=== PATIENT | female | born 1985 | race Caucasian/White ===

== ENCOUNTER → 2020-09-04 10:03 | Outpatient (BNVA) | payer OTHER, SELFPAY | PROVIDERS: Visit Provider Advanced Practice Midwife | DX: R10.2 Pelvic and perineal pain (principal); R87.619 Unspecified abnormal cytological findings in specimens from cervix uteri; N89.8 Other specified noninflammatory disorders of vagina; Z98.890 Other specified postprocedural states | CPT/HCPCS: 99213 ==

== ENCOUNTER 2020-09-04 14:29 | Outpatient (REF) | payer OTHER, SELFPAY ==
[2020-09-04 16:23] LABS: CT PCR NOT DETECTED (Not Detect.); NG PCR NOT DETECTED (Not Detect.)
[2020-09-05 11:27] LABS: BV Int Neg Control Negative (Negative); BV Int Pos Control Positive (Positive)
[2020-09-13 18:17] LABS: HPV mRNA E6/E7 rflx Not Detected (Not Detected)
== END 2020-09-04 14:30 | disposition home or self-care (01) ==
LOC: HO.LNP 14:29
PROVIDERS: Visit Provider Advanced Practice Midwife
DX: Z11.3 Encounter for screening for infections with a predominantly sexual mode of transmission (principal); N89.8 Other specified noninflammatory disorders of vagina
CPT/HCPCS: 87480; 87491; 87510; 87591; 87624; 87625; 87660; 88142

== ENCOUNTER 2020-09-05 11:57 | Outpatient (REF) | payer OTHER, SELFPAY | END 2020-09-05 11:58 | disposition home or self-care (01) | LOC: HO.LAB 11:57 | PROVIDERS: Visit Provider Advanced Practice Midwife | DX: Z13.89 Encounter for screening for other disorder (principal) ==

== ENCOUNTER 2020-10-20 09:38 | Outpatient (REF) | payer OTHER, SELFPAY ==
--- NOTE | 2020-10-20 09:42 | US_ITS ---
EXAMINATION: US PELVIC COMPLETE US TRANSVAGINAL CLINICAL INFORMATION: Pelvic pain. COMPARISON: None TECHNIQUE: Transabdominal and transvaginal ultrasound of the pelvis is performed. FINDINGS: The uterus is retroflexed measuring 8.7 cm in length, 5.6 cm in AP and 6.1 cm in transverse dimension. The uterus is homogeneous in echotexture without focal lesion. Endometrial thickness is 1.3 cm. Right ovary measures 3.0 x 1.6 x 1.5 cm and volume 3.6 mL. Previously, the right ovary measured 2.8 x 1.4 x 1.6 cm. Left ovary measures 2.5 x 1.7 x 2.5 cm and volume 5.5 mL. There is an anechoic dominant follicle cyst measuring 1.7 x 1.3 x 1.7 cm. Several additional cysts are seen. There is no free fluid in cul-de-sac. US/US pelvic complete IMPRESSION: Dominant follicular cysts seen in the left ovary. Otherwise, both ovaries are unremarkable. The uterus is unremarkable.
--- NOTE | 2020-10-20 09:42 | US_ITS ---
EXAMINATION: US PELVIC COMPLETE US TRANSVAGINAL CLINICAL INFORMATION: Pelvic pain. COMPARISON: None TECHNIQUE: Transabdominal and transvaginal ultrasound of the pelvis is performed. FINDINGS: The uterus is retroflexed measuring 8.7 cm in length, 5.6 cm in AP and 6.1 cm in transverse dimension. The uterus is homogeneous in echotexture without focal lesion. Endometrial thickness is 1.3 cm. Right ovary measures 3.0 x 1.6 x 1.5 cm and volume 3.6 mL. Previously, the right ovary measured 2.8 x 1.4 x 1.6 cm. Left ovary measures 2.5 x 1.7 x 2.5 cm and volume 5.5 mL. There is an anechoic dominant follicle cyst measuring 1.7 x 1.3 x 1.7 cm. Several additional cysts are seen. There is no free fluid in cul-de-sac. US/US transvaginal IMPRESSION: Dominant follicular cysts seen in the left ovary. Otherwise, both ovaries are unremarkable. The uterus is unremarkable.
== END 2020-10-20 09:39 | disposition home or self-care (01) ==
LOC: HO.HMGCX 09:38
PROVIDERS: Visit Provider Advanced Practice Midwife
DX: R10.2 Pelvic and perineal pain (principal); B96.89 Other specified bacterial agents as the cause of diseases classified elsewhere; Z80.0 Family history of malignant neoplasm of digestive organs; Z87.42 Personal history of other diseases of the female genital tract
CPT/HCPCS: 76830; 76856; 99212

== ENCOUNTER 2021-08-17 13:16 | Outpatient (REF) | payer OTHER, SELFPAY ==
[2021-08-18 10:34] LABS: CT PCR NOT DETECTED (Not Detect.); NG PCR NOT DETECTED (Not Detect.)
[2021-08-19 14:35] LABS: BV Int Neg Control Negative (Negative); BV Int Pos Control Positive (Positive)
== END 2021-08-17 13:17 | disposition home or self-care (01) ==
LOC: HO.LAB 13:16
PROVIDERS: Visit Provider Advanced Practice Midwife
DX: Z11.3 Encounter for screening for infections with a predominantly sexual mode of transmission (principal); N76.0 Acute vaginitis; B96.89 Other specified bacterial agents as the cause of diseases classified elsewhere; Z87.42 Personal history of other diseases of the female genital tract; Z20.2 Contact with and (suspected) exposure to infections with a predominantly sexual mode of transmission
CPT/HCPCS: 87480; 87491; 87510; 87591; 87660; 99212

== ENCOUNTER 2021-10-23 08:17 | Outpatient (REF) | payer SELFPAY ==
[2021-10-23 13:29] LABS: CT PCR NOT DETECTED (Not Detect.); NG PCR NOT DETECTED (Not Detect.)
[2021-10-24 11:16] LABS: BV Int Neg Control Negative (Negative); BV Int Pos Control Positive (Positive)
[2021-10-26 20:07] LABS: HPV mRNA E6/E7 rflx Not Detected (Not Detected)
== END 2021-10-23 08:18 | disposition home or self-care (01) ==
LOC: HO.LAB 08:17
PROVIDERS: Visit Provider Advanced Practice Midwife
DX: Z12.4 Encounter for screening for malignant neoplasm of cervix (principal); Z11.51 Encounter for screening for human papillomavirus (HPV); Z20.2 Contact with and (suspected) exposure to infections with a predominantly sexual mode of transmission; N76.0 Acute vaginitis; B96.89 Other specified bacterial agents as the cause of diseases classified elsewhere; Z87.42 Personal history of other diseases of the female genital tract
CPT/HCPCS: 87480; 87491; 87510; 87591; 87624; 87660; 88142

== ENCOUNTER 2023-08-27 13:43 | Outpatient (AMB) | payer BC, SELFPAY ==
--- NOTE | 2023-08-27 13:44 | MHC.OFFVIS ---
Intake Vital Signs 08/27/23 13:47 Height 4 ft 11 in Weight 122 lb BMI 24.6 BP 118/80 Blood Pressure Location Rt brachial Position Sitting Intake Visit Reasons: Pelvic pain Allergies divalproex sodium [DIVALPROEX SODIUM] Allergy (Unknown, Verified 08/27/23 13:49) UNKNOWN prednisone [PREDNISONE] Allergy (Unknown, Verified 08/27/23 13:49) UNKNOWN propranolol [PROPRANOLOL] Allergy (Unknown, Verified 08/27/23 13:49) UNKNOWN rizatriptan [RIZATRIPTAN] Allergy (Unknown, Verified 08/27/23 13:49) UNKNOWN Medication List - Last Reconciled 08/27/23 by Leda Nelson CNM amlodipine 5 mg PO DAILY ascorbate calcium (vitamin C) 500 mg PO QDAY ferrous fumarate (Ferretts) 325 mg PO BID Is last menstrual period known: Yes Last menstrual period: 08/13/23 HPI Pelvic pain HPI Details Patient is here to discuss her left-sided pelvic pain which she has had for years but has periodically been very very bad for her. 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 She has her next appointment with her primary care in October it is hard to get appointments. She had a history of something being taken out of her uterus some years ago (history of endometrial curettage with removal of endometrial polyp 2017) she also had abnormal Pap smears CINTIA 2-3 in 2017 and had a LEEP on 07/16/[address] Haywood both surgeries worry with Dr. Haywood. Patient continues with occasional left-sided pain in some ways it is always there but it gets worse at times and on July 30 it was so bad she had to leave work her last period was on August 13 she gets regular periods she has had her tubes tied so she does need to worry about control and she was last sexually active 6 months ago she has a history of having occasional recurrences of bacterial vaginosis but lately it has been pretty good and she has not needed to self treat though she attempted a treatment with boric acid capsules just in case that was the cause of her symptoms recently it did not do anything. Because she was characterizing the pain when she called as left-sided burning there was a question apparently of a UTI so she self-treated with azo/kqai-lsl-plukimk treatment and it did nothing whatsoever. We will submit a urinary culture today but her symptoms do not align with a UTI at all. HPI Comments History of Present Illness Details Pt c/o left sided pain seems to get more intense with cycles ( burning sensation ) since last month radiates down leg x few years PFSH Medical History Abnormal Pap smear of cervix Anemia Anemia Endometrial polyp FHx: migraine headaches GERD (gastroesophageal reflux disease) Pelvic pain Surgical History Hx of pelvic surgery H/O LEEP H/O tubal ligation Family History Maternal Aunt Colon cancer Social History Alcohol intake: never Female Reproductive History Menstrual Age of Menarche: 10 Date of last menstrual period: 08/13/23 Total pregnancies: 2 Number of Living Children: 2 Physical Exam Vital Signs: Last Vital Signs BP 118/80 08/27/23 13:47 BMI result Body Mass Index 24.6 Const General: healthy appearing, comfortable, no acute distress, well developed and alert Nutritional Appearance: average body habitus Orientation/consciousness: patient oriented x3 Limitations: no limitations HEENT Head: Yes normocephalic Neck Neck: Yes normal visual inspection Chest Chest palpation & inspection: normal inspection of the chest Breast/axilla inspection: normal inspection of the breasts and normal inspection of the axillae Breast/axilla palpation: normal palpation of the breasts and normal palpation of the axillae Resp Effort & Inspection: normal respiratory effort GI Inspection: Yes normal to inspection, No Abdominal wall edema and No distended Palpation (GI): Soft to palpation and nontender Other: Speculum exam completely within normal limits today no abnormal discharge noted discharge is clear with slight yellow tinge. Cervix is pink and smooth markedly anterior. Uterus is small nontender retroverted. Adnexa are bilaterally small nontender not enlarged to palpation by my exam. Good tone with Kegel. General: Yes bladder normal to palpation External Female Exam: normal external appearance and normal appearance of the urethra Speculum Exam - Vagina: normal appearance of the vagina, normal palpation and normal vaginal discharge Speculum Exam - Cervix: normal appearance of the cervix, normal palpation and nontender Bimanual exam- vagina & uterus: normal bimanual exam, normal palpation, uterine size normal, bladder normal to palpation, consistency normal, normal palpation, uterine mobility normal, uterine shape normal, No Cervical tenderness present, non-tender and no cervical motion tenderness Bimanual Exam- Adnexa, other: normal adnexae, no masses, normal and No adnexal tenderness Neuro General: patient oriented x3 Results Reviewed Results Reviewed: Patient: Kiah Keller MR#: [id number] : 1985 Acct:[id number] Age/Sex: 35 / F ADM Date: 10/20/20 Loc: HO.[facility]GCX Attending Dr: Leda Nelson CNM Ordering Physician: Leda Nelson CNM Date of Service: 10/20/20 Procedure(s): US transvaginal Accession Number(s): [id number] cc: Leda Nelson CNM~ EXAMINATION: US PELVIC COMPLETE US TRANSVAGINAL CLINICAL INFORMATION: Pelvic pain. COMPARISON: None TECHNIQUE: Transabdominal and transvaginal ultrasound of the pelvis is performed. FINDINGS: The uterus is retroflexed measuring 8.7 cm in length, 5.6 cm in AP and 6.1 cm in transverse dimension. The uterus is homogeneous in echotexture without focal lesion. Endometrial thickness is 1.3 cm. Right ovary measures 3.0 x 1.6 x 1.5 cm and volume 3.6 mL. Previously, the right ovary measured 2.8 x 1.4 x 1.6 cm. Left ovary measures 2.5 x 1.7 x 2.5 cm and volume 5.5 mL. There is an anechoic dominant follicle cyst measuring 1.7 x 1.3 x 1.7 cm. Several additional cysts are seen. There is no free fluid in cul-de-sac. US/US transvaginal IMPRESSION: Dominant follicular cysts seen in the left ovary. Otherwise, both ovaries are unremarkable. The uterus is unremarkable. 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 Negative for intraepithelial lesion or malignancy. HPV mRNA E6/E7: NOT DETECTED This assay detects E6/E7 viral messenger RNA (mRNA) from 14 high-risk HPV types (16, 18, 31, 33, 35, 39, 45, 51, 52, 56, 58, 59, 66, 68) HPV testing performed by [facility], [place], [place]. See reference laboratory portion of the EMR for entire report. Clinical Information LMP: 10/03/21 Previous PAP test: 2020, WNL Other history:2018 abnormal pap Material Received ThinPrep-Cervical Electronically Signed By: Elias Lawson MD 11/08/21 0909 The Pap Test is a screening procedure with the inherent possibility of both false negative and false positive results. Results should be interpreted in the context of historic and current clinical findings. Reliability of the Pap Test is enhanced by performing the test on a regular repetitive basis. Patient: Kiah Keller Age/Sex: 36/F MR#: [id number] Page 1 of 1 Name: Kiah Keller Specimen #: [id number] Age/Sex: 35/F Attending: Leda Nelson CNM : 1985 Submitted by: Leda Nelson CNM Collected: 09/04/20 MR #: [id number] Received: 09/06/20 Status: DEP REF Location: [facility] Interpretation Satisfactory for evaluation. Coccobacilli consistent with shift in vaginal florentin. Negative for intraepithelial lesion or malignancy. HPV mRNA E6/E7: Not Detected This assay detects E6/E7 viral messenger RNA (mRNA) from 14 high-risk HPV types (16, 18, 31, 33, 35, 39, 45, 51, 52, 56, 58, 59, 66, 68) HPV testing performed by [facility], [place], [place]. See reference laboratory portion of the EMR for entire report. Clinical Information LMP: 08/09/20 Previous PAP test: 08/31/19, abnormal Other history: Hx of CINTIA 2, LEEP, CINTIA 2 2018 Material Received ThinPrep cervical Electronically Signed By: OKSANA Roy (ASCP) 09/20/20 1221 Patient: Kiah Keller Age/Sex: 35/F MR#: [id number] Page 1 of 1 Assessment & Plan Assessment & Plan (1) Well woman exam with routine gynecological exam: Code(s): Z01.419 - Encounter for gynecological examination (general) (routine) without abnormal findings (2) Family hx of colon cancer: Code(s): Z80.0 - Family history of malignant neoplasm of digestive organs (3) Hx of abnormal cervical Pap smear: Comment: hx of CINTIA 2-3 in 2018 followed by LEEP; 10/23/21 pap = neg, neg hpv. Pap done 08/27/2023. Code(s): Z87.42 - Personal history of other diseases of the female genital tract (4) Left sided abdominal pain: Code(s): R10.9 - Unspecified abdominal pain (5) Screen for sexually transmitted diseases: Code(s): Z11.3 - Encounter for screening for infections with a predominantly sexual mode of transmission (6) Pelvic pain: Code(s): R10.2 - Pelvic and perineal pain Plan Because of her strong family history of colon cancer I recommend she speak with her primary care provider when she sees him or her in October to discuss colon cancer screening. She has been dealing with constipation by taking prunes and prune juice and that has been helping. Additionally I will order mammogram for her. I am going to order a pelvic ultrasound she had small ovarian cysts noted in past but did not return for the follow-up visit. She thinks that might of been when she lost insurance. Discussed that the most likely culprit of her symptoms are possible recurrences of ovarian cysts and or ovulation pain the pain she experienced on July 30 was exactly 14 days before the following menses so it would make sense that it has to do with ovulation. Discussed the challenges of this and limitations of management. Discussed that if she ever got really severe pain the only thing to do would be go to the emergency room but sometimes knowing that the pain has to do with ovulation can make it more manageable. I will leave it up to her as to when she chooses to schedule the ultrasound and she may want to do it in [place] so long as she signs so that we can get the results of it and she and I will have a visit afterwards to discuss the results I offered her testing for STIs but she has no concerns and if she wants to get them done when ever she goes for the ultrasound that would be fine. We will send the urine but I do not expect to find signs of a UTI either and I did her Pap smear because of her history of CINTIA 2-3 followed by the LEEP in 2018 her last 2 Paps in 2019 in 2020 were normal. Patient drives a long way here for these visits so I re made an effort to consolidate everything that could be done today. Orders: Orders Bacterial Vaginosis Panel Today N89.8 - Other specified noninflammatory disorders of vagina Pap Smear Today Z01.419 - Encounter for gynecological examination (general) (routine) without abnormal findings Urine Culture Today R10.2 - Pelvic and perineal pain MM tomosynthesis screening BI Today Z12.31 - Encounter for screening mammogram for malignant neoplasm of breast US pelvic and transvaginal Today R10.2 - Pelvic and perineal pain, R10.9 - Unspecified abdominal pain Hepatitis B Surface Antigen Today Z11.3 - Encounter for screening for infections with a predominantly sexual mode of transmission CT NG by PCR Today R10.2 - Pelvic and perineal pain Hepatitis C Antibody Today Z11.3 - Encounter for screening for infections with a predominantly sexual mode of transmission HIV Ab/Ag Today Z11.3 - Encounter for screening for infections with a predominantly sexual mode of transmission Syphilis Screen Today Z11.3 - Encounter for screening for infections with a predominantly sexual mode of transmission Coding Level of Care Code Est Pt Prev Care 40-64y(46953) Diagnoses Well woman exam with routine gynecological exam Z01.419 Family hx of colon cancer Z80.0 Hx of abnormal cervical Pap smear Z87.42 Left sided abdominal pain R10.9 Screen for sexually transmitted diseases Z11.3 Pelvic pain R10.2
[2023-08-27 13:47] VITALS: BP 118/80; BMI 24.6
== END 2023-08-27 15:11 | disposition home or self-care (01) ==
PROVIDERS: Visit Provider Advanced Practice Midwife
DX: Z01.419 Encounter for gynecological examination (general) (routine) without abnormal findings (principal); Z80.0 Family history of malignant neoplasm of digestive organs; Z87.42 Personal history of other diseases of the female genital tract; R10.9 Unspecified abdominal pain; Z11.3 Encounter for screening for infections with a predominantly sexual mode of transmission; R10.2 Pelvic and perineal pain
CPT/HCPCS: 99396

== ENCOUNTER 2023-08-27 13:43 | Outpatient (REF) | payer BC, SELFPAY ==
[2023-08-27 17:21] LABS: CT PCR NOT DETECTED (Not Detect.); NG PCR NOT DETECTED (Not Detect.)
[2023-08-28 13:49] LABS: BV Int Neg Control Negative (Negative); BV Int Pos Control Positive (Positive)
[2023-08-29 22:48] LABS: HPV mRNA E6/E7 rflx Not Detected (Not Detected)
== END 2023-08-27 13:44 | disposition home or self-care (01) ==
LOC: HO.LNP 13:43
PROVIDERS: Visit Provider Advanced Practice Midwife
DX: Z01.419 Encounter for gynecological examination (general) (routine) without abnormal findings (principal); Z11.51 Encounter for screening for human papillomavirus (HPV); R10.2 Pelvic and perineal pain; N89.8 Other specified noninflammatory disorders of vagina
CPT/HCPCS: 0353U; 87086; 87480; 87510; 87624; 87660; 88142

== ENCOUNTER 2023-08-29 15:53 | Outpatient (AMB) | payer BC, SELFPAY ==
--- NOTE | 2023-08-29 15:54 | MHC.OFFVIS ---
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 Allergies divalproex sodium [DIVALPROEX SODIUM] Allergy (Unknown, Verified 08/29/23 15:54) UNKNOWN prednisone [PREDNISONE] Allergy (Unknown, Verified 08/29/23 15:54) UNKNOWN propranolol [PROPRANOLOL] Allergy (Unknown, Verified 08/29/23 15:54) UNKNOWN rizatriptan [RIZATRIPTAN] Allergy (Unknown, Verified 08/29/23 15:54) UNKNOWN Medication List - Last Reconciled 08/29/23 by Leda Nelson CNM amlodipine 5 mg PO DAILY ascorbate calcium (vitamin C) 500 mg PO QDAY ferrous fumarate (Ferretts) 325 mg PO BID HPI F/U,LAB HPI Details This was a tele visit to discuss patient's urine results from the it came back showing lactobacillus in her urine. She has a history of bacterial vaginosis in the past and she had had a previous finding of an endometrial polyp and a cyst so she drove all the way from [place], to be seen here and she also had believed that she might have a urinary tract infection because somebody had told her that she might have a UTI because she had some burning and pain on her left side however as she demonstrated and then repeated many times today during this phone call the pain on her left side is more sharp and it is long term between her belly button and her hip and it is low down but it is not where her bladder is she does not have any dysuria or other urinary tract symptoms. At the time of the visit she also did not complain of any particular other symptoms. A decision was made during that visit to get a pelvic ultrasound to see if she might have an ovarian cyst or something else that could be going on that could explain her pain but she is trying to arrange that VS speaking with the staff at the front of the office to try to get the ultrasound to be done at 1 of the hospitals in the city where she lives rather than drive all the way out here for an appointment she also may have a tele visit after that result so that we can review it together however today we are discussing that the urine culture showed lactobacillus and while this bacteria sometimes can be part of a normal florentin vaginally it also sometimes can be noted to be responsible for a urinary tract infection but the data is unclear and susceptibilities on not normally done additionally treatment with amoxicillin which is 1 of the first-line treatments often can result in a yeast infection. Patient and I discussed her symptoms in detail and 3 times during the conversation she reference to the pain that she was having and what should she do about it given that a decision was made to treat this lactobacillus as if it might be you their tract infection though I in fact doubt that it is responsible for her symptoms. Additionally I am sending a prescription for Monistat vaginal cream that she should mixing picker tender at the same time as her amoxicillin and use at the 1st symptoms of vaginal itching or burning. Other evidence pointing away from a urinary tract infection is that she took azo [id number] when she was told it might be a urinary tract infection and it did absolutely nothing and if it was a UTI it may have ameliorated her symptoms somewhat. In the meantime she will await the scheduling of the pelvic ultrasound and we will have a follow-up visit after that but I told her if she continues to with pain that is on relenting or that becomes more serious she may need to seek urgent care in the city where she is rather than drive back and forth to [place]. PFSH Medical History Endometrial polyp GERD (gastroesophageal reflux disease) Pelvic pain Abnormal Pap smear of cervix Anemia Anemia FHx: migraine headaches Surgical History Hx of pelvic surgery H/O LEEP H/O tubal ligation Family History Maternal Aunt Colon cancer Social History Alcohol intake: never Female Reproductive History Menstrual Age of Menarche: 10 control method: permanent sterilization Results Reviewed Results Reviewed: Name: Kiah Keller Age/Sex: 38/F : 1985 Unit#: [id number] Attend Dr: Leda Nelson CNM Re08/27/23 Status: DEP REF Location: [facility] Disch: Specimen: [id number] Collected: 08/27/23 Status: COMP Req#: [id number] Received: 08/27/231 Source: [facility] Tunde Desc: Clean Cat Subm Dr: Leda Nelson CNM Ordered: Urine Culture Procedure Result Verified Site Urine Culture Final 08/29/23 Organism 1 Lactobacillus species Quant > 100,000 cfu/mL [facility] [place] [facility] N/A Susceptibility not routinely performed on this isolate. Assessment & Plan Assessment & Plan (1) Left sided abdominal pain: Code(s): R10.9 - Unspecified abdominal pain (2) UTI (urinary tract infection): Comment: Possible. lactobacillus is only isolette Code(s): N39.0 - Urinary tract infection, site not specified Plan This was a tele visit to discuss patient's urine results from the it came back showing lactobacillus in her urine. She has a history of bacterial vaginosis in the past and she had had a previous finding of an endometrial polyp and a cyst so she drove all the way from [place], to be seen here and she also had believed that she might have a urinary tract infection because somebody had told her that she might have a UTI because she had some burning and pain on her left side however as she demonstrated and then repeated many times today during this phone call the pain on her left side is more sharp and it is long term between her belly button and her hip and it is low down but it is not where her bladder is she does not have any dysuria or other urinary tract symptoms. At the time of the visit she also did not complain of any particular other symptoms. A decision was made during that visit to get a pelvic ultrasound to see if she might have an ovarian cyst or something else that could be going on that could explain her pain but she is trying to arrange that VS speaking with the staff at the front of the office to try to get the ultrasound to be done at 1 of the hospitals in the city where she lives rather than drive all the way out here for an appointment she also may have a tele visit after that result so that we can review it together however today we are discussing that the urine culture showed lactobacillus and while this bacteria sometimes can be part of a normal florentin vaginally it also sometimes can be noted to be responsible for a urinary tract infection but the data is unclear and susceptibilities on not normally done additionally treatment with amoxicillin which is 1 of the first-line treatments often can result in a yeast infection. Patient and I discussed her symptoms in detail and 3 times during the conversation she reference to the pain that she was having and what should she do about it given that a decision was made to treat this lactobacillus as if it might be you their tract infection though I in fact doubt that it is responsible for her symptoms. Additionally I am sending a prescription for Monistat vaginal cream that she should mixing picker tender at the same time as her amoxicillin and use at the 1st symptoms of vaginal itching or burning. Other evidence pointing away from a urinary tract infection is that she took azo [id number] when she was told it might be a urinary tract infection and it did absolutely nothing and if it was a UTI it may have ameliorated her symptoms somewhat. In the meantime she will await the scheduling of the pelvic ultrasound and we will have a follow-up visit after that but I told her if she continues to with pain that is on relenting or that becomes more serious she may need to seek urgent care in the city where she is rather than drive back and forth to [place]. Medications: New amoxicillin 500 mg PO BID 14 caps 0RF miconazole nitrate 2% (Miconazole-7) 1 appful vaginal BEDTIME 7 days 45 grams 0RF Coding Level of Care Code Tele Est Pt Level 3 (18461) Diagnoses Left sided abdominal pain R10.9 UTI (urinary tract infection) N39.0 Time Spent (min) 36 Comment 5cr/23 on video phone w pt ( didnt work well)/8 charting
== END 2023-09-01 10:20 | disposition home or self-care (01) ==
LOC: HO.HWS 15:53
PROVIDERS: Visit Provider Advanced Practice Midwife
DX: R10.9 Unspecified abdominal pain (principal); N39.0 Urinary tract infection, site not specified
CPT/HCPCS: 99213

== ENCOUNTER → 2023-08-29 15:53 | Outpatient (BNVA) | payer BC, SELFPAY | PROVIDERS: Visit Provider Advanced Practice Midwife ==

== ENCOUNTER 2023-11-21 15:17 | Outpatient (REF) | payer BC, SELFPAY ==
--- NOTE | ~2023-11-21 | US_ITS ---
EXAMINATION: US PELVIS CLINICAL INFORMATION: Abdominal pain; the last menstrual period was 3 weeks prior. COMPARISON: Pelvic ultrasound dated 10/20/2020. TECHNIQUE: Ultrasound of the pelvis is performed using both transabdominal and transvaginal transducers along with Doppler. Transvaginal imaging is performed due to inadequate visualization transabdominally. FINDINGS: Uterus: The uterus is retroverted and retroflexed. The uterus measures 2.2 x 4.9 x 5.5 cm. The double wall endometrial thickness is 2.0 cm). Within the endometrial canal towards the fundus, a 2.3 x 1.2 x 0.9 cm polyp is suspected. The uterus is smooth in contour and has normal myometrial echogenicity. No visible fibroid. Adnexa: Both ovaries are visualized. There is normal color flow to the adnexa. There is no ovarian torsion. There is no pelvic ascites or fluid collection. Right ovary measures 3.4 x 1.9 x 1.3 cm, volume 4.4 mL. There are physiologic follicles, and a small coarse calcification is seen. Left ovary measures 2.9 x 1.4 x 2.0 cm, volume 4.5 mL. There are physiologic follicles, and a small coarse calcification is seen. US/US pelvic and transvaginal IMPRESSION: 1. There is abnormal endometrial stripe thickening to 2.0 cm, and a 2.3 cm polyp is questioned within the fundal portion of the endometrial canal. Gynecology evaluation and management is recommended, with consideration for tissue sampling, if clinically appropriate. 2. There are small bilateral ovarian calcifications, which can be associated with dermoid formation or possibly a sequela of prior inflammation or hemorrhage.
== END 2023-11-21 15:18 | disposition home or self-care (01) ==
LOC: HO.US 15:17
PROVIDERS: Visit Provider Advanced Practice Midwife
DX: R10.2 Pelvic and perineal pain (principal); R10.9 Unspecified abdominal pain
CPT/HCPCS: 76830; 76856

== ENCOUNTER 2023-11-26 09:19 | Outpatient (AMB) | payer BC, SELFPAY ==
--- NOTE | 2023-11-26 09:20 | MHC.OFFVIS ---
Intake Intake Visit Reasons: TV US follow up Ophthalmology Assistant Required: No Allergies divalproex sodium [DIVALPROEX SODIUM] Allergy (Unknown, Verified 11/26/23 09:20) UNKNOWN prednisone [PREDNISONE] Allergy (Unknown, Verified 11/26/23 09:20) UNKNOWN propranolol [PROPRANOLOL] Allergy (Unknown, Verified 11/26/23 09:20) UNKNOWN rizatriptan [RIZATRIPTAN] Allergy (Unknown, Verified 11/26/23 09:20) UNKNOWN Medication List - Last Reconciled 11/26/23 by Leda Nelson CNM amlodipine 5 mg PO DAILY amoxicillin 500 mg PO BID ascorbate calcium (vitamin C) 500 mg PO QDAY ferrous fumarate (Ferretts) 325 mg PO BID miconazole nitrate 2% (Miconazole-7) 1 appful vaginal BEDTIME 7 days Post menopausal: No HPI TV US follow up HPI Details This is a tele visit to review patient's ultrasound which showed an endometrial polyp she has been having episodes of pelvic pain on 1 side or the other. She has a history of having had a LEEP in 2018 and she also had surgery to remove an endometrial polyp in 2018. [facility] Medical History (Updated 11/26/23 @ 09:50 by Leda Nelson CNM) Endometrial polyp GERD (gastroesophageal reflux disease) Pelvic pain Abnormal Pap smear of cervix Anemia Anemia FHx: migraine headaches Surgical History (Updated 11/26/23 @ 09:43 by Leda Nelson CNM) Hx of pelvic surgery H/O LEEP H/O tubal ligation Family History Maternal Aunt Colon cancer Social History Alcohol intake: never Female Reproductive History Menstrual Age of Menarche: 10 control method: other (tubal ligation) Results Reviewed Results Reviewed: jamel: Kiah Keller Age/Sex: 38/F : 1985 Unit#: [id number] Attend Dr: Leda Nelson CNM Re08/27/23 Status: DEP REF Location: [facility] Disch: SPEC : [id number] ELMER: 08/27/23-0333 STATUS: COMP REQ : [id number] RECD: 08/27/[address]: Leda Nelson CNM COMP: 08/28/23 ENTERED: 08/27/[address]: Physician,None ORDERED: BV Panel Test Result Flag Reference Trichomonas DNA Negative Negative Gardnerella DNA Negative Negative Sara DNA Negative Negative jamel: Kiah Keller Age/Sex: 38/F : 1985 Unit#: [id number] Attend Dr: Leda Nelson CNM Re08/27/23 Status: DEP REF Location: [facility] Disch: SPEC : [id number] ELMER: 08/27/23 STATUS: COMP REQ : [id number] RECD: 08/27/[address]: Leda Nelson CNM COMP: 08/28/23 ENTERED: 08/27/[address]: Physician,None ORDERED: BV Panel Test Result Flag Reference Trichomonas DNA Negative Negative Gardnerella DNA Negative Negative Sara DNA Negative Negative Patient: Kiah Keller MR#: [id number] : 1985 Acct:[id number] Age/Sex: 38 / F ADM Date: 11/21/23 Loc: [facility] Attending Dr: Leda Nelson CNM Ordering Physician: Leda Nelson CNM Date of Service: 11/21/23 Procedure(s): US pelvic and transvaginal Accession Number(s): [id number] cc: Leda Nelson CNM~ EXAMINATION: US PELVIS CLINICAL INFORMATION: Abdominal pain; the last menstrual period was 3 weeks prior. COMPARISON: Pelvic ultrasound dated 10/20/2020. TECHNIQUE: Ultrasound of the pelvis is performed using both transabdominal and transvaginal transducers along with Doppler. Transvaginal imaging is performed due to inadequate visualization transabdominally. FINDINGS: Uterus: The uterus is retroverted and retroflexed. The uterus measures 2.2 x 4.9 x 5.5 cm. The double wall endometrial thickness is 2.0 cm). Within the endometrial canal towards the fundus, a 2.3 x 1.2 x 0.9 cm polyp is suspected. The uterus is smooth in contour and has normal myometrial echogenicity. No visible fibroid. Adnexa: Both ovaries are visualized. There is normal color flow to the adnexa. There is no ovarian torsion. There is no pelvic ascites or fluid collection. Right ovary measures 3.4 x 1.9 x 1.3 cm, volume 4.4 mL. There are physiologic follicles, and a small coarse calcification is seen. Left ovary measures 2.9 x 1.4 x 2.0 cm, volume 4.5 mL. There are physiologic follicles, and a small coarse calcification is seen. US/US pelvic and transvaginal IMPRESSION: 1. There is abnormal endometrial stripe thickening to 2.0 cm, and a 2.3 cm polyp is questioned within the fundal portion of the endometrial canal. Gynecology evaluation and management is recommended, with consideration for tissue sampling, if clinically appropriate. 2. There are small bilateral ovarian calcifications, which can be associated with dermoid formation or possibly a sequela of prior inflammation or hemorrhage. Dictated By: Miguel Nelson MD Signed By: <Electronically signed by Miguel Nelson MD in OV> 11/25/23 1230 DD/ 1550 TD/TT: Exhibitor Sales: BASILIO Assessment & Plan Assessment & Plan (1) Endometrial polyp: Comment: (history of hysteroscopy and removal of endometrial polyp also in 2018);11/25/23, With thickened endometrial stripe.-to see Dr. San. 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 Pap done 08/27/2023= negative with negative HPV. Code(s): Z87.42 - Personal history of other diseases of the female genital tract (3) Left sided abdominal pain: Comment: Discussed at each visit I recommend she keep track of the timing of the pain as it may coincide with post ovulatory symptoms Code(s): R10.9 - Unspecified abdominal pain Plan Was a tele visit speaking with the patient to review the results of her ultrasound that were done on Friday and read on 11/25/2023. Patient is having pain on 1 side which started yesterday and is there a little bit today some days she does not have it. Her last menstrual period was November 07 she she had a thickened endometrial lining and an endometrial polyp noted on the pelvic ultrasound her ovaries were completely within normal limits on the day that the ultrasound was done. She has a history of a LEEP for CINTIA 2. 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 I reviewed her previous history of an endometrial polyp in 2018 and that it appears to be the same thing again so I am referring her to Dr. San for discussion of the plan from there which may involve a hysteroscopy again under anesthesia. Also I very much encouraged her to keep very very good track of her menses which she does on her phone but also now to add in the documentation of when she feels the pain as at least by today's discussion it appears that it may in fact coincide with post ovulatory symptoms which are very common and if these repeat themselves every month that may leave some of her anxieties to realize that they are a common experience and are predictable on the other hand she may want to something about it and consider some sort of menstrual suppression perhaps with a Mirena which may alleviate this as well. She will be scheduled with Dr. San she is already received 1 phone call and she is going to call in now and make the appointment. Also reviewed her last normal Pap smear in August and her negative screens for STIs and negative testing for BV. Telehealth Telehealth Location of provider rendering services: practice address Location of patient: other (work) Patient Identification confirmed using: Name, : Yes Telehealth method: voice only Patient verbally consented to treatment: Yes Patient verbally consented to billing insurance company: Yes Patient informed of any privacy concerns related to visit: Yes Coding Level of Care Code Tele Est Pt Level 3 (91263) Diagnoses Endometrial polyp N84.0 Hx of abnormal cervical Pap smear Z87.42 Left sided abdominal pain R10.9
== END 2023-11-26 09:49 | disposition home or self-care (01) ==
LOC: HO.HWSM 09:19
PROVIDERS: Visit Provider Advanced Practice Midwife
DX: N84.0 Polyp of corpus uteri (principal); Z87.42 Personal history of other diseases of the female genital tract; R10.9 Unspecified abdominal pain
CPT/HCPCS: 99441

== ENCOUNTER → 2023-11-26 09:19 | Outpatient (BNVA) | payer BC, SELFPAY | PROVIDERS: Visit Provider Advanced Practice Midwife ==

== ENCOUNTER 2023-11-27 13:22 | Outpatient (REF) | payer BC, SELFPAY ==
[2023-11-27 15:01] LABS: Hematocrit 38.9 % (37.0-47.0); Hemoglobin 13.5 g/dl (12.0-16.0); Mean Corpuscular HGB Conc 34.7 g/dl (31.0-35.0); Mean Corpuscular Hemoglobin 31.4 pg (27.0-33.0); Mean Corpuscular Volume 90.5 fL (80.0-98.0); Mean Platelet Volume 9.6 fL (9.4-12.3); Platelet Count 302 X10*3/uL (160-400); Red Cell Distribution Width 13.1 % (11.0-16.0); White Blood Count 6.6 X10*3/uL (4.8-10.8)
[2023-11-27 15:46] LABS: HCG Quantitative 3 mIU/mL; TSH reflex Free T4 0.81 uIU/mL (0.32-4.0)
[2023-11-28 06:54] LABS: Prolactin 11.8 ng/mL
== END 2023-11-27 13:23 | disposition home or self-care (01) ==
LOC: HO.LAB 13:22
PROVIDERS: Visit Provider Obstetrics & Gynecology
DX: N84.0 Polyp of corpus uteri (principal); N93.9 Abnormal uterine and vaginal bleeding, unspecified
CPT/HCPCS: 36415; 81025; 84146; 84443; 84702; 85027

== ENCOUNTER 2023-11-27 13:22 | Outpatient (AMB) | payer BC, SELFPAY ==
--- NOTE | 2023-11-27 13:44 | A.OFFVIS_ITS ---
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 Operator Present Allergies divalproex sodium [DIVALPROEX SODIUM] Allergy (Unknown, Verified 11/26/23 09:20) UNKNOWN prednisone [PREDNISONE] Allergy (Unknown, Verified 11/26/23 09:20) UNKNOWN propranolol [PROPRANOLOL] Allergy (Unknown, Verified 11/26/23 09:20) UNKNOWN rizatriptan [RIZATRIPTAN] Allergy (Unknown, Verified 11/26/23 09:20) UNKNOWN Is last menstrual period known: Yes Last menstrual period: 09/07/20 Post menopausal: No Patient : No Do you need a note to return to daycare/school/sports/work: Yes (for surgery on friday) HPI HPI Comments History of Present Illness Details The patient is presenting referred from Leda Nelson CNM regarding irregular heavy menstrual cycles associated with passage of blood clots. The following workup was done: Co testing negative, GC/CT negative. Pelvic ultrasound showed the following: Uterus: The uterus is retroverted and retroflexed. The uterus measures 2.2 x 4.9 x 5.5 cm. The double wall endometrial thickness is 2.0 cm). Within the endometrial canal towards the fundus, a 2.3 x 1.2 x 0.9 cm polyp is suspected. The uterus is smooth in contour and has normal myometrial echogenicity. No visible fibroid. Adnexa: Both ovaries are visualized. There is normal color flow to the adnexa. There is no ovarian torsion. There is no pelvic ascites or fluid collection. Right ovary measures 3.4 x 1.9 x 1.3 cm, volume 4.4 mL. There are physiologic follicles, and a small coarse calcification is seen. Left ovary measures 2.9 x 1.4 x 2.0 cm, volume 4.5 mL. There are physiologic follicles, and a small coarse calcification is seen. [facility] Medical History (Updated 11/27/23 @ 14:08 by Romulo San MD) Endometrial polyp GERD (gastroesophageal reflux disease) Pelvic pain Abnormal Pap smear of cervix Anemia Anemia FHx: migraine headaches Surgical History Hx of pelvic surgery H/O LEEP H/O tubal ligation Family History Maternal Aunt Colon cancer Social History Alcohol intake: never Female Reproductive History Menstrual Age of Menarche: 10 Date of last menstrual period: 09/07/20 Total pregnancies: 2 Full term: 2 Review of Systems Const All systems reviewed & are unremarkable except as noted in HPI and below Reports as per HPI and Reports no additional complaints Card Reports as per HPI and Reports no additional complaints Resp Reports as per HPI and Reports no additional complaints GI Reports no additional complaints Reports no additional complaints Physical Exam Vital Signs: Last Vital Signs BP 108/66 11/27/23 13:49 BMI result Body Mass Index 24.5 Const General: cooperative, healthy appearing and comfortable Chest Chest palpation & inspection: normal inspection of the chest and normal palpation of entire chest wall Breast/axilla inspection: normal inspection of the breasts and normal inspection of the axillae Breast/axilla palpation: normal palpation of the breasts, normal palpation of the axillae and no axillary lymphadenopathy Resp Effort & Inspection: normal respiratory effort Auscultation: clear to auscultation bilaterally Percussion: percussion normal Cardio Palpation: normal PMI Rate: regular rate Rhythm: regular rhythm Heart sounds: no murmurs and no rubs Peripheral pulses: Peripheral pulses 2+ throughout GI Inspection: Yes normal to inspection Palpation (GI): Soft to palpation, nontender, no guarding, not rigid and No hepatosplenomegaly present Percussion: Yes normal to percussion Auscultation: normal bowel sounds Rectal Exam - Female: deferred Results AMB Test Urine AMB Test Urine Negative Last Edit by Desiree Gonzalez CMA on 13:56 Assessment & Plan Assessment & Plan (1) Endometrial polyp: Code(s): N84.0 - Polyp of corpus uteri Plan: Discussed with the patient the finding on ultrasound showing endometrial polyp, recommended hysteroscopy D&C possible polypectomy/myomectomy. Discussed with the patient the procedure , all benefits and risks including but not limited to inability to complete the procedure , insufficient endometrial tissue for a complete evaluation of the endometrial cavity , bleeding, infection, possible need for blood transfusion with all its risk ( HIV,syphilis, Hepatitis, anaphylaxis shock, others..), injury to bladder, rectum, possible need for laparoscopy/laparotomy or hysterectomy. The patient verbalized understanding and signed the consent. Instructions given the patient to schedule a 2 week postoperative appointment (2) Abnormal uterine bleeding (AUB): Code(s): N93.9 - Abnormal uterine and vaginal bleeding, unspecified Plan: Co testing done and GC and chlamydia done and negative in 09/01 , pelvic ultrasound recently done. CBC, TSH, prolactin hCG ordered. Discussed with the patient the different causes of abnormal bleeding including thyroid disorders, uterine and ovarian pathology, endometrial hyperplasia, carcinoma and other potential causes. Discussed with the patient the work up including endometrial biopsy to r/o endometrial pathology. All questions answered and the patient verbalized understanding. Instructed the patient to schedule a follow-up appointment with an few weeks. Orders: Orders Complete Blood Count no Diff Today N93.9 - Abnormal uterine and vaginal bleeding, unspecified MM screening mammo BI Today Z12.31 - Encounter for screening mammogram for ashish gnant neoplasm of breast HCG Quantitative Today N93.9 - Abnormal uterine and vaginal bleeding, unspecified AMB HCG Urine Test Today Z32.02 - Encounter for test, result negative TSH reflex Free T4 Today N93.9 - Abnormal uterine and vaginal bleeding, unspecified Prolactin Today N93.9 - Abnormal uterine and vaginal bleeding, unspecified Coding Level of Care Code Est Pt Level 3 (77152) Diagnoses Endometrial polyp N84.0 Abnormal uterine bleeding (AUB) N93.9
[2023-11-27 13:49] VITALS: BP 108/66; BMI 24.5
== END 2023-11-27 15:25 | disposition home or self-care (01) ==
LOC: HO.HWS 13:22
PROVIDERS: Visit Provider Obstetrics & Gynecology
DX: N84.0 Polyp of corpus uteri (principal); N93.9 Abnormal uterine and vaginal bleeding, unspecified; Z32.02 Encounter for pregnancy test, result negative
CPT/HCPCS: 99213

== ENCOUNTER 2023-11-29 06:57 | Outpatient (REF) | payer BC, SELFPAY ==
[2023-11-29 08:20] LABS: HCG Quantitative 5 mIU/mL
== END 2023-11-29 06:58 | disposition home or self-care (01) ==
LOC: HO.LAB 06:57
PROVIDERS: Visit Provider Obstetrics & Gynecology
DX: N93.9 Abnormal uterine and vaginal bleeding, unspecified (principal)
CPT/HCPCS: 36415; 84702

== ENCOUNTER 2023-12-01 13:15 | Outpatient (REF) | payer BC, SELFPAY ==
[2023-12-01 13:51] LABS: HCG Quantitative < 2 mIU/mL
== END 2023-12-01 13:16 | disposition home or self-care (01) ==
LOC: HO.LAB 13:15
PROVIDERS: Visit Provider Obstetrics & Gynecology
DX: R79.89 Other specified abnormal findings of blood chemistry (principal)
CPT/HCPCS: 36415; 84702

== ENCOUNTER 2023-12-03 12:13 | Outpatient (REF) | payer BC, SELFPAY ==
[2023-12-03 13:47] LABS: HCG Quantitative < 2 mIU/mL
== END 2023-12-03 12:14 | disposition home or self-care (01) ==
LOC: HO.LAB 12:13
PROVIDERS: Visit Provider Obstetrics & Gynecology
DX: R79.89 Other specified abnormal findings of blood chemistry (principal)
CPT/HCPCS: 36415; 84702

== ENCOUNTER 2023-12-03 12:26 | Outpatient (AMB) | payer BC, SELFPAY ==
--- NOTE | 2023-12-03 12:54 | A.OFFVIS_ITS ---
Intake Vital Signs 12/03/23 13:00 Height 4 ft 11 in Weight 121 lb 4.068 oz BMI 24.5 BP 118/74 Intake Visit Reasons: hcg follow up Allergies divalproex sodium [DIVALPROEX SODIUM] Allergy (Unknown, Verified 11/26/23 09:20) UNKNOWN prednisone [PREDNISONE] Allergy (Unknown, Verified 11/26/23 09:20) UNKNOWN propranolol [PROPRANOLOL] Allergy (Unknown, Verified 11/26/23 09:20) UNKNOWN rizatriptan [RIZATRIPTAN] Allergy (Unknown, Verified 11/26/23 09:20) UNKNOWN HPI HPI Comments History of Present Illness Details The patient is presenting for follow-up to discuss the results of her hCG. HCG on 11/27 was 3 went up to 5 on 11/29 and down to less than 2 on 12/01, hCG today was less than 2. [facility] Medical History Endometrial polyp GERD (gastroesophageal reflux disease) Pelvic pain Abnormal Pap smear of cervix Anemia Anemia FHx: migraine headaches Surgical History Hx of pelvic surgery H/O LEEP H/O tubal ligation Family History Maternal Aunt Colon cancer Social History Alcohol intake: never Female Reproductive History Menstrual Age of Menarche: 10 Physical Exam Vital Signs: Last Vital Signs BP 118/74 12/03/23 13:00 BMI result Body Mass Index 24.5 Assessment & Plan Assessment & Plan (1) Elevated serum hCG: Code(s): R79.89 - Other specified abnormal findings of blood chemistry Plan: Discussed with the patient the hCG level went up to 5 down to less than 2 confirmed today after 48 hours preop Coding Level of Care Code Est Pt Level 3 (59503) Diagnoses Elevated serum hCG R79.89
[2023-12-03 13:00] VITALS: BP 118/74; BMI 24.5
== END 2023-12-03 14:12 | disposition home or self-care (01) ==
LOC: HO.HWS 12:26
PROVIDERS: Visit Provider Obstetrics & Gynecology
DX: R79.89 Other specified abnormal findings of blood chemistry (principal)
CPT/HCPCS: 99213

== ENCOUNTER 2023-12-12 05:33 | Day surgery (SDC) | payer BC, SELFPAY ==
[2023-12-10 07:04] VITALS: BMI 24.4
--- NOTE | 2023-12-11 10:27 | HO.ANESPROP2 ---
Documented by User: Rosanne Flores NP 12/11/23 10:27 HPI - Anesthesia Eval Consult details Narrative: 38yo F for Dilation and Curettage Hysteroscopy possible myometomy/polypectomy s/p tubal PMFSH Active Problems Active Problems: All Active Problems (Updated 12/03/23 @ 13:03 by Romulo San MD) Elevated serum hCG (Acute) Abnormal uterine bleeding (AUB) (Acute) Hx of pelvic surgery (Acute) Endometrial polyp (Acute) UTI (urinary tract infection) (Acute) Screen for sexually transmitted diseases (Acute) Left sided abdominal pain (Acute) Problematic vaginal discharge (Acute) Well woman exam with routine gynecological exam (Acute) Family hx of colon cancer (Acute) Bacterial vaginosis (Acute) Hx of abnormal cervical Pap smear (Acute) Vaginal discharge (Chronic) Pelvic pain (Acute) Past Medical History Medical History Endometrial polyp GERD (gastroesophageal reflux disease) Pelvic pain Abnormal Pap smear of cervix Anemia Anemia FHx: migraine headaches Family History Family History Maternal Aunt Colon cancer Surgical History Surgical History Hx of pelvic surgery H/O LEEP H/O tubal ligation Social History Social History Alcohol intake: never Patient Tobacco Use Status: Never used Tobacco Are you DNR?: No Advance Directives: No Advance Directives Information Provided: Yes Recently lost weight without trying: No Nutrition Risks: No Nutritional Risk Patient : No FDLMP: now Meds Allergies Allergy/AdvReac Type Severity Reaction Status Date / Time divalproex sodium Allergy Unknown UNKNOWN Verified 11/26/23 09:20 [DIVALPROEX SODIUM] prednisone [PREDNISONE] Allergy Unknown UNKNOWN Verified 11/26/23 09:20 propranolol [PROPRANOLOL] Allergy Unknown UNKNOWN Verified 11/26/23 09:20 rizatriptan [RIZATRIPTAN] Allergy Unknown UNKNOWN Verified 11/26/23 09:20 Home Medications Medication Instructions Recorded Confirmed Last Taken Type ferrous fumarate 325 mg (106 mg 325 mg PO BID 09/04/20 12/12/23 12/12/23 History iron) tablet (Ferretts) amlodipine 5 mg tablet 5 mg PO DAILY 08/27/23 12/12/23 12/12/23 History ascorbate calcium (vitamin C) 500 500 mg PO QDAY 08/27/23 12/12/23 12/12/23 History mg tablet Exam Height,Weight and Vital Signs: Height 4 ft 11 in Weight 54.885 kg Assessment and Plan Assessment Anesthesia Assessment: Chart Reviewed Documented by User: Shreyas Melchor MD 12/12/23 07:35 [facility] Past Medical History Medical History Endometrial polyp GERD (gastroesophageal reflux disease) Pelvic pain Abnormal Pap smear of cervix Anemia Anemia FHx: migraine headaches Patient : No Family History Family History Maternal Aunt Colon cancer Family history of problems with anesthesia: No Surgical History Surgical History Hx of pelvic surgery H/O LEEP H/O tubal ligation History of Problems with Anesthesia: No Social History Social History Alcohol intake: never Patient Tobacco Use Status: Never used Tobacco Are you DNR?: No Advance Directives: No Advance Directives Information Provided: Yes Recently lost weight without trying: No Nutrition Risks: No Nutritional Risk Patient : No FDLMP: now Meds Allergies Allergy/AdvReac Type Severity Reaction Status Date / Time divalproex sodium Allergy Unknown UNKNOWN Verified 11/26/23 09:20 [DIVALPROEX SODIUM] prednisone [PREDNISONE] Allergy Unknown UNKNOWN Verified 11/26/23 09:20 propranolol [PROPRANOLOL] Allergy Unknown UNKNOWN Verified 11/26/23 09:20 rizatriptan [RIZATRIPTAN] Allergy Unknown UNKNOWN Verified 11/26/23 09:20 Home Medications Medication Instructions Recorded Confirmed Last Taken Type ferrous fumarate 325 mg (106 mg 325 mg PO BID 09/04/20 12/12/23 12/12/23 History iron) tablet (Ferretts) amlodipine 5 mg tablet 5 mg PO DAILY 08/27/23 12/12/23 12/12/23 History ascorbate calcium (vitamin C) 500 500 mg PO QDAY 08/27/23 12/12/23 12/12/23 History mg tablet Exam Airway Mallampati Class: I TM Dist: >3cm Neck ROM: Full Loose/Missing/Broken Teeth: No Heart: ok Lungs: ok Assessment and Plan Assessment Anesthesia Assessment: Anesthesia Plan Discussed Final Anesthetic Review Family History of Problems with Anesthesia: No History of Problems with Anesthesia: No NPO: Yes ASA Class: II Final Preanesthetic Review: No Changes in Pt Med Stat, Meds/Allgs Chart Reviewed, Consent Obtained/Reviewed and Anes Risks/Benef Reviewed Patient Risk: Low Procedure Risk: Low Anesthetic Plan Anesthetic Plan: GA and Agree w/ Assess. and Plan Disposition: Standard PACU
[2023-12-12 06:07] VITALS: BMI 25.9
[2023-12-12 06:21] LABS: UPreg QC Valid YES; Urine Pregnancy NEGATIVE (NEGATIVE)
[2023-12-12 06:31] VITALS: BP 157/99; PULSE 85; RESP 18; TEMP 36.1; O2SAT 98
[2023-12-12] MEDS: Lactated Ringers 1,000 ML 100 ML IVCONT (06:33)
--- NOTE | 2023-12-12 07:31 | MHC.SHP ---
Pre-Procedural Eval Section A - 24 Hr Update-Section A only Date of Service: 12/12/23 The patient is an INPATIENT: No Changes since office visit: No Cold of Flu in the past 2 weeks, No New Medical Problems, No Changes in Medication and No Patient answered all questions The patient has been examined within 24 hours of the surgical procedure. The History & Physical has been completed within 30 days and I have reviewed it.: Yes Section B - Complete if H&P > 30 days Chief Complaint: Polyp of corpus uteri Allergies: Allergies Allergy/AdvReac Type Severity Reaction Status Date / Time divalproex sodium Allergy Unknown UNKNOWN Verified 11/26/23 09:20 [DIVALPROEX SODIUM] prednisone [PREDNISONE] Allergy Unknown UNKNOWN Verified 11/26/23 09:20 propranolol [PROPRANOLOL] Allergy Unknown UNKNOWN Verified 11/26/23 09:20 rizatriptan [RIZATRIPTAN] Allergy Unknown UNKNOWN Verified 11/26/23 09:20 Plan Diagnosis/Plan: Unchanged I have reviewed the history and physical and performed a pertinent physical examination on my patient. No changes have occurred unless specified. Time Spent With Patient Time: Total time managing care of this patient today ____ minutes.
--- NOTE | 2023-12-12 08:01 | P.BOP_ITS ---
Brief Operative Note Date of Service: 12/12/23 Pre-op diagnosis: Abnormal uterine bleeding, endometrial polyp by ultrasound Post-op diagnosis: same (Normal endometrial cavity) Procedure: Hysteroscopy D&C Surgeon: Romulo San MD Anesthesia: GLMA Was an Chief Operations Officer used for this Procedure?: No Estimated blood loss (mL): 0 Pathology: other (Endometrial Scrapping) Condition: stable Disposition: PACU
--- NOTE | 2023-12-12 08:01 | P.OP_ITS ---
Operative Note Operative Note Date of Service: 12/12/23 Narrative: Preop Diagnosis: Abnormal uterine bleeding, endometrial polyp by ultrasound Operation: Diagnostic Hysteroscopy, Dilataion & Curettage Post Op Diagnosis: Normal endometrial and endocervical cavity, no evidence of pathology QBL: Minimal Anesthesia: GLMA Surgeon: Romulo San MD Pinball Machine Repairer: None Complication: None Pathology: Endometrial Scrapings Procedure: The patient was put in the dorsal lithotomy position, scrubbed, and draped in the usual manner. A sterile speculum was inserted in the patient's vagina. The anterior lip of the cervix was grasped with a single tooth tenaculum. The cervix was dilated up to 5 mm, then the scope was inserted in the patient's uterus. Inspection revealed normal endocervical & endometrial cavity with no evidence of pathology. The scope was taken out of the uterine cavity , then sharp curetting was carried on with no complications. At the end of the procedure, all instruments were taken out of the patient uterine and vaginal cavity. The single tooth tenaculum was removed and homeostasis was assured using pressure. The patient tolerated the procedure well and was transferred to the PACU in a stable condition.
[2023-12-12 08:05] VITALS: BP 144/86; PULSE 65; RESP 14; TEMP 36.8; O2SAT 99
[2023-12-12 08:10] VITALS: BP 149/91; PULSE 74; RESP 16; O2SAT 98
[2023-12-12] MEDS: oxyCODONE HCl Immed Release 5 MG TABLET PO (08:10)
[2023-12-12] MEDS: Acetaminophen 325 MG TABLET 650 MG PO (08:10)
[2023-12-12 08:15] VITALS: BP 139/83; PULSE 57; RESP 18; O2SAT 100
[2023-12-12 08:20] VITALS: BP 160/92; PULSE 52; RESP 16; TEMP 36.6; O2SAT 100
[2023-12-12 08:35] VITALS: BP 140/83; PULSE 59; RESP 18; TEMP 36.8; O2SAT 100
== END 2023-12-12 09:30 | disposition home or self-care (01) ==
PROVIDERS: Visit Provider Obstetrics & Gynecology
PROC: 0UDB8ZZ Extraction of Endometrium, Via Natural or Artificial Opening Endoscopic (ICD-10-PCS; CPT 58558; principal; 2023-12-12 07:30)
DX: N93.9 Abnormal uterine and vaginal bleeding, unspecified (principal); N84.0 Polyp of corpus uteri; D64.9 Anemia, unspecified; Z98.890 Other specified postprocedural states; Z88.8 Allergy status to other drugs, medicaments and biological substances
CPT/HCPCS: 58558; 81025; 88305; J1885; J2405; J2704; J3010

== ENCOUNTER → 2023-12-12 05:33 | Outpatient (BNV) | payer BC, SELFPAY | PROVIDERS: Visit Provider Obstetrics & Gynecology | DX: N93.9 Abnormal uterine and vaginal bleeding, unspecified (principal) | CPT/HCPCS: 58558 ==

== ENCOUNTER 2023-12-16 10:11 | Outpatient (REF) | payer BC, SELFPAY ==
--- NOTE | ~2023-12-16 | US_ITS ---
EXAMINATION: US PELVIS CLINICAL INFORMATION: Inflammatory disease of the uterus, unspecified LMP 12/09/2023 COMPARISON: Pelvic ultrasound 11/21/2023 TECHNIQUE: Ultrasound of the pelvis is performed using both transabdominal and transvaginal transducers along with Doppler. Transvaginal imaging is performed due to inadequate visualization transabdominally. FINDINGS: Uterus: The uterus is retroverted and measures 11.8 x 5.9 x 5.8 cm. The myometrium is hypervascular. The endometrial thickness is 0.9 mm. There is free fluid within the endometrial cavity (bleeding) status post procedure. The endometrial cavity is slightly irregular with echogenic solid components in the fundal aspect of the endometrial cavity, possibly clot. Adnexa: Both ovaries are visualized. There is normal color flow to the adnexa. There is no ovarian torsion. There is a small amount of fluid within the left adnexa. Right ovary is normal in appearance and measures 1.9 x 3.3 x 1.9 cm. Volume 5.6 mL. Left ovary is normal in appearance and measures 2.0 x 2.4 x 1.4 cm. Volume 2.5 mL. US/US pelvic and transvaginal IMPRESSION: 1. The myometrium is hypervascular. 2. Fluid within the endometrial cavity (bleeding) status post procedure. The endometrial cavity is slightly irregular with echogenic solid components in the fundal aspect of the endometrial cavity, possibly clot. 3. Normal ovaries.
[2023-12-16 11:58] LABS: Basophils Percent Auto 0.2 % (0-2); Eosinophils Percent Auto 0.5 % (0-4); Hematocrit 38.5 % (37.0-47.0); Hemoglobin 13.3 g/dl (12.0-16.0); Imm Gran Abs Auto 0.02 X10*3/uL (0.00-0.03); Imm Gran Pct Auto 0.2 % (0.0-0.4); Lymphocytes Absolute Auto 1.7 X10*3/uL (1.2-4.9); Lymphocytes Percent Auto 20.1 % (20-40); MANUAL DIFF FLAG NO; Mean Corpuscular HGB Conc 34.5 g/dl (31.0-35.0); Mean Corpuscular Hemoglobin 30.8 pg (27.0-33.0); Mean Corpuscular Volume 89.1 fL (80.0-98.0); Mean Platelet Volume 9.5 fL (9.4-12.3); Monocytes Absolute Auto 0.6 X10*3/uL (0.1-1.2); Monocytes Percent Auto 6.8 % (2-11); Neutrophils Percent Auto 72.2 % (45-73); Platelet Count 295 X10*3/uL (160-400); Red Blood Count 4.32 X10*6/uL (4.20-5.50); Red Cell Distribution Width 12.6 % (11.0-16.0); White Blood Count 8.3 X10*3/uL (4.8-10.8)
[2023-12-16 15:57] LABS: CT PCR NOT DETECTED (Not Detect.); NG PCR NOT DETECTED (Not Detect.)
[2023-12-17 13:40] LABS: BV Int Neg Control Negative (Negative); BV Int Pos Control Positive (Positive)
== END 2023-12-16 10:12 | disposition home or self-care (01) ==
LOC: HO.LAB 10:11
PROVIDERS: Visit Provider Obstetrics & Gynecology
DX: R10.2 Pelvic and perineal pain (principal); N93.9 Abnormal uterine and vaginal bleeding, unspecified; N71.9 Inflammatory disease of uterus, unspecified
CPT/HCPCS: 0353U; 36415; 76830; 76856; 81025; 85025; 87086; 87480; 87510; 87660; 96372; J0696

== ENCOUNTER 2023-12-16 10:11 | Outpatient (AMB) | payer BC, SELFPAY ==
--- NOTE | 2023-12-16 10:29 | MHC.OFFVIS ---
Intake Vital Signs 12/16/23 10:32 Height 4 ft 11 in Weight 121 lb BMI 24.4 BP 120/70 Intake Visit Reasons: vaginal bleeding Allergies divalproex sodium [DIVALPROEX SODIUM] Allergy (Unknown, Verified 11/26/23 09:20) UNKNOWN prednisone [PREDNISONE] Allergy (Unknown, Verified 11/26/23 09:20) UNKNOWN propranolol [PROPRANOLOL] Allergy (Unknown, Verified 11/26/23 09:20) UNKNOWN rizatriptan [RIZATRIPTAN] Allergy (Unknown, Verified 11/26/23 09:20) UNKNOWN HPI HPI Comments History of Present Illness Details Presenting postop day 4 from hysteroscopy D&C complaining of pelvic cramping was mild bleeding no passage of blood clots, no fever or chills, no nausea or vomiting, no other GI or symptoms. The patient is tolerating regular diet, and is having regular bowel movement PFSH Medical History Endometrial polyp GERD (gastroesophageal reflux disease) Pelvic pain Abnormal Pap smear of cervix Anemia Anemia FHx: migraine headaches Surgical History Hx of pelvic surgery H/O LEEP H/O tubal ligation Family History Maternal Aunt Colon cancer Social History Alcohol intake: never Patient Tobacco Use Status: Never used Tobacco Female Reproductive History Menstrual Age of Menarche: 10 Review of Systems Const All systems reviewed & are unremarkable except as noted in HPI and below Physical Exam Vital Signs: Last Vital Signs BP 120/70 12/16/23 10:32 BMI result Body Mass Index 24.4 GI Inspection: Yes normal to inspection Palpation (GI): Soft to palpation, not firm and nontender General: Yes no CVA tenderness External Female Exam: normal external appearance and normal appearance of the urethra Speculum Exam - Vagina: normal appearance of the vagina, normal palpation, no lesions and no masses Speculum Exam - Cervix: normal appearance of the cervix, normal palpation, no lesions, no masses and Cervical tenderness present Bimanual exam- vagina & uterus: normal bimanual exam, normal palpation, uterine size normal, normal palpation, uterine shape normal, Cervical tenderness present and cervical motion tenderness Bimanual Exam- Adnexa, other: normal adnexae Back/Spine/Pelvis Back: no CVA tenderness Office Meds ceftriaxone 500 mg solution for injection Performing Provider: Romulo San MD Performing Location: [facility] [place] [facility] Administered by: Domenica Sales LPN on 12/16/23 11:00 Dose Route Admin Location Dispensed Lot Number Expiration Date [facility] [employer] 500 mg IM rt. gluteus 500 mg [id number] 11/08/25 6547-8358-18 [employer] Results AMB Test Urine AMB Test Urine Negative Last Edit by AUSTIN Pizano on 12/16/23 10:55 Results Reviewed Results Reviewed: Laboratory Last Values [facility] Negative 12/16/23 10:53 Assessment & Plan Assessment & Plan (1) Endometritis: Code(s): N71.9 - Inflammatory disease of uterus, unspecified Plan: Urine test done in the office was negative. Will order CBC, pelvic ultrasound, and send urine for culture. GC and chlamydia with BV panel taken. Will treat with ceftriaxone 500 mg IM x1, doxycycline 100 mg p.o. b.i.d. with Flagyl 500 mg p.o. b.i.d. for 14 days. Instructions given the patient to call or go to emergency room in case of fever equal or above 100.4, persistent or worsening of her abdominal/pelvic pain, nausea or vomiting and to schedule a follow-up appointment in 3 days. Orders: Orders Complete Blood Count Auto Diff Today N71.9 - Inflammatory disease of uterus, unspecified Bacterial Vaginosis Panel Today N93.9 - Abnormal uterine and vaginal bleeding, unspecified CT NG by PCR Today R10.2 - Pelvic and perineal pain AMB HCG Urine Test Today N93.9 - Abnormal uterine and vaginal bleeding, unspecified AMB Ceftriaxone Injection Today N71.9 - Inflammatory disease of uterus, unspecified US pelvic and transvaginal Today N71.9 - Inflammatory disease of uterus, unspecified Urine Culture Today R10.2 - Pelvic and perineal pain Medications: New metronidazole 500 mg PO BID 14 days 28 tabs 0RF doxycycline hyclate 100 mg PO BID 14 days 28 caps 0RF Coding Level of Care Code Est Pt Level 3 (58662) Diagnoses Endometritis N71.9
[2023-12-16 10:32] VITALS: BP 120/70; BMI 24.4
== END 2023-12-16 12:13 | disposition home or self-care (01) ==
LOC: HO.HWS 10:11
PROVIDERS: Visit Provider Obstetrics & Gynecology
DX: N71.9 Inflammatory disease of uterus, unspecified (principal); N93.9 Abnormal uterine and vaginal bleeding, unspecified
CPT/HCPCS: 99213

== ENCOUNTER 2023-12-16 11:57 | Outpatient (REF) | payer BC, SELFPAY | END 2023-12-16 11:58 | disposition home or self-care (01) | LOC: HO.US 11:57 | PROVIDERS: Visit Provider Obstetrics & Gynecology | DX: Z13.89 Encounter for screening for other disorder (principal) ==

== ENCOUNTER 2023-12-19 07:50 | Outpatient (REF) | payer BC, SELFPAY ==
--- NOTE | ~2023-12-19 | MM_ITS ---
EXAMINATION: MM SCREENING DIGITAL BREAST TOMOSYNTHESIS, BILATERAL CLINICAL INFORMATION: Screening. Asymptomatic. COMPARISON: Mammography: This is a baseline mammogram. TECHNIQUE: Digital breast tomosynthesis is performed in both the craniocaudal and mediolateral oblique views along with computer-aided detection (CAD). Synthesized 2D images are generated from the tomosynthesis. FINDINGS: There are scattered areas of fibroglandular density (ACR BI-RADS breast composition Category b). There are no significant masses, abnormal calcifications, or other abnormalities. MM/MM tomosynthesis screening BI IMPRESSION: No mammographic evidence of malignancy. ASSESSMENT: BI-RADS BI-RADS 1 - Negative RECOMMENDATION: Routine annual mammography screening. 1 year F/U This examination should not preclude the clinical evaluation of a suspicious palpable abnormality. This patient's information was entered into a reminder system with a target due date for their next mammogram.
== END 2023-12-19 07:51 | disposition home or self-care (01) ==
LOC: HO.MAMMO 07:50
PROVIDERS: PCP Registered Nurse; Visit Provider Obstetrics & Gynecology
DX: Z12.31 Encounter for screening mammogram for malignant neoplasm of breast (principal)
CPT/HCPCS: 77063; 77067

== ENCOUNTER → 2023-12-19 08:15 | Outpatient (BNV) | payer BC, SELFPAY | PROVIDERS: PCP Registered Nurse; Visit Provider Radiology Diagnostic Radiology | DX: Z12.31 Encounter for screening mammogram for malignant neoplasm of breast (principal) | CPT/HCPCS: 77063; 77067 ==

== ENCOUNTER 2023-12-19 08:25 | Outpatient (AMB) | payer BC, SELFPAY ==
[2023-12-19 08:43] VITALS: BMI 24.0
--- NOTE | 2023-12-19 08:43 | MHC.OFFVIS ---
Intake Vital Signs 12/19/23 08:43 Height 4 ft 11 in Weight 119 lb 0.794 oz BMI 24.0 Intake Visit Reasons: follow up/lab/U/S Allergies divalproex sodium [DIVALPROEX SODIUM] Allergy (Unknown, Verified 11/26/23 09:20) UNKNOWN prednisone [PREDNISONE] Allergy (Unknown, Verified 11/26/23 09:20) UNKNOWN propranolol [PROPRANOLOL] Allergy (Unknown, Verified 11/26/23 09:20) UNKNOWN rizatriptan [RIZATRIPTAN] Allergy (Unknown, Verified 11/26/23 09:20) UNKNOWN HPI HPI Comments History of Present Illness Details Presenting for follow-up endometritis , the patient is seen ceftriaxone IM and started on doxycycline/Flagyl b.i.d., is feeling markedly better, her pain has improved minimal vaginal bleeding, no fever or chills, no nausea or vomiting. Pelvic ultrasound showed the following: IMPRESSION: 1. The myometrium is hypervascular. 2. Fluid within the endometrial cavity (bleeding) status post procedure. The endometrial cavity is slightly irregular with echogenic solid components in the fundal aspect of the endometrial cavity, possibly clot. 3. Normal ovaries. CBC within normal, GC/CT/BV panel all negative PFSH Medical History Endometrial polyp GERD (gastroesophageal reflux disease) Pelvic pain Abnormal Pap smear of cervix Anemia Anemia FHx: migraine headaches Surgical History Hx of pelvic surgery H/O LEEP H/O tubal ligation Family History Maternal Aunt Colon cancer Social History Alcohol intake: never Patient Tobacco Use Status: Never used Tobacco Female Reproductive History Menstrual Age of Menarche: 10 Physical Exam Vital Signs: BMI result Body Mass Index 24.0 GI Palpation (GI): Soft to palpation, nontender and no guarding Assessment & Plan Assessment & Plan (1) Endometritis: Code(s): N71.9 - Inflammatory disease of uterus, unspecified Plan: Discussed with the patient the improved findings on physical exam and the results of her blood work and GC/CT and BV panel in addition to the finding on ultrasound, the patient was reassured, instructions given the patient to complete her antibiotic course and follow-up in 2 weeks and to call in case of fever above 100.4, nausea or vomiting, heavy vaginal bleeding or worsening/persistence of her pain. All questions answered, the patient verbalized understanding Coding Level of Care Code Est Pt Level 3 (06071) Diagnoses Endometritis N71.9
== END 2023-12-19 08:50 | disposition home or self-care (01) ==
LOC: HO.HWS 08:25
PROVIDERS: Visit Provider Obstetrics & Gynecology
DX: N71.9 Inflammatory disease of uterus, unspecified (principal)
CPT/HCPCS: 99213

== ENCOUNTER 2024-01-29 13:59 | Outpatient (AMB) | payer BC, SELFPAY ==
[2024-01-29 14:25] VITALS: BP 116/68; BMI 24.0
--- NOTE | 2024-01-29 14:25 | A.OFFVIS_ITS ---
Intake Vital Signs 01/29/24 14:25 Height 4 ft 11 in Weight 119 lb BMI 24.0 BP 116/68 Blood Pressure Location Lt brachial Position Sitting Intake Visit Reasons: 2 weeks follow up/per Information Interpreted: non-clinical & clinical Continuous Improvement Intern: Continuous Improvement Intern Present Accompanied by: Self / Same As Patient Allergies divalproex sodium [DIVALPROEX SODIUM] Allergy (Unknown, Verified 01/29/24 14:27) UNKNOWN prednisone [PREDNISONE] Allergy (Unknown, Verified 01/29/24 14:27) UNKNOWN propranolol [PROPRANOLOL] Allergy (Unknown, Verified 01/29/24 14:27) UNKNOWN rizatriptan [RIZATRIPTAN] Allergy (Unknown, Verified 01/29/24 14:27) UNKNOWN Is last menstrual period known: Yes Last menstrual period: 01/02/24 Patient : No HPI HPI Comments History of Present Illness Details The patient is presenting for 2 week follow-up regarding endometritis post hysteroscopy D&C. The patient is doing well with no complaints. Completed 14 days of antibiotics, no more pelvic pain. The workup for AUB include the following: H&H= 13.3/38.5 TSH, hCG, prolactin, GC and chlamydia were negative. Hysteroscopy D&C pathology showed the following: Endometrium, curettage: Benign proliferative endometrium with focal stromal co llapse; no atypia or carcinoma. Comment: Some fragments may be derived from benign endometrial polyp/s Co testing was done was negative. Mammogram was BI-RADS 1 Pelvic ultrasound showed the following: IMPRESSION: 1. The myometrium is hypervascular. 2. Fluid within the endometrial cavity (bleeding) status post procedure. The endometrial cavity is slightly irregular with echogenic solid components in the fundal aspect of the endometrial cavity, possibly clot. 3. Normal ovaries PFSH Medical History (Updated 01/29/24 @ 14:42 by Romulo San MD) Migraine headache with aura Endometrial polyp GERD (gastroesophageal reflux disease) Pelvic pain Abnormal Pap smear of cervix Anemia Anemia FHx: migraine headaches Surgical History Hx of pelvic surgery H/O LEEP H/O tubal ligation Family History Maternal Aunt Colon cancer Social History Alcohol intake: never Patient Tobacco Use Status: Never used Tobacco Patient : No Female Reproductive History Menstrual Age of Menarche: 10 Date of last menstrual period: 01/02/24 Review of Systems Const All systems reviewed & are unremarkable except as noted in HPI and below Reports as per HPI and Reports no additional complaints GI Reports no additional complaints Reports no additional complaints Physical Exam Vital Signs: Last Vital Signs BP 116/68 01/29/24 14:25 BMI result Body Mass Index 24.0 General: Yes no CVA tenderness External Female Exam: normal external appearance and normal appearance of the urethra Speculum Exam - Vagina: normal appearance of the vagina, normal palpation, no lesions and no masses Speculum Exam - Cervix: normal appearance of the cervix, normal palpation, no lesions, no masses and nontender Bimanual exam- vagina & uterus: normal bimanual exam, normal palpation, uterine size normal, normal palpation, uterine shape normal, No Cervical tenderness present and non-tender Bimanual Exam- Adnexa, other: normal adnexae Back/Spine/Pelvis Back: no CVA tenderness Assessment & Plan Assessment & Plan (1) Abnormal uterine bleeding (AUB): Code(s): N93.9 - Abnormal uterine and vaginal bleeding, unspecified Plan: Discussed with the patient the results of the work up done and options of treatment including Lysteda, BCP's, Mirena IUD, endometrial ablation and hysterectomy. All pros, cons, risks and benefits if each option was discussed with the patient and the patient decided to think about it and get back to us. All questions answered the patient verbalized understanding. (2) Endometritis: Comment: Resolved Code(s): N71.9 - Inflammatory disease of uterus, unspecified Plan: Discussed with the patient normal pelvic exam resolution of the endometritis, instructions given the patient to call in case of recurrence of her pain, fever above 100.4, heavy vaginal bleeding. All questions answered, the patient verbalized understanding Coding Level of Care Code Est Pt Level 3 (43345) Diagnoses Abnormal uterine bleeding (AUB) N93.9 Endometritis N71.9
== END 2024-01-29 15:22 | disposition home or self-care (01) ==
PROVIDERS: Visit Provider Obstetrics & Gynecology
DX: N93.9 Abnormal uterine and vaginal bleeding, unspecified (principal); N71.9 Inflammatory disease of uterus, unspecified
CPT/HCPCS: 99213

== ENCOUNTER → 2024-01-29 13:59 | Outpatient (BNVA) | payer BC, SELFPAY | PROVIDERS: Visit Provider Obstetrics & Gynecology ==